=== PATIENT | female | born 1970 | race Two or more races ===

== ENCOUNTER 2023-07-05 02:16 | Emergency (ER) | payer SELFPAY ==
[~2023-07-05] VITALS: Ht 154.9 cm; Wt 79.5 kg
[2023-07-05] MEDS: AmLODIPine BESYLATE 5 MG TABLET PO ONE (02:43)
[2023-07-05 02:49] LABS: BASOPHILS % (AUTO) 0.7 % (0.0-2.0); EOSINOPHILS % (AUTO) 1.6 % (1.0-6.0); HEMATOCRIT 41.7 % (36-46); HEMOGLOBIN 14.2 g/dL (12.0-16.0); MEAN CORPUSCULAR HEMOGLOBIN 31.3 pg (26.0-34.0); MEAN CORPUSCULAR VOLUME 92 fL (80-100); MONOCYTES # (AUTO) 0.7 K/uL (0.1-1.0); MONOCYTES % (AUTO) 7.7 % (2.0-9.0); NEUTROPHILS # (AUTO) 4.8 K/uL (1.8-7.7); PLATELET COUNT (AUTO) 310 K/uL (150-450); RED BLOOD CELL COUNT(AUTO) 4.54 MIL/uL (4.00-5.20); RED CELL DISTRIBUTION WIDTH 12.9 % (11.5-14.5); WHITE BLOOD COUNT (AUTO) 9.8 K/uL (4.5-11.0)
[2023-07-05 02:59] LABS: ANION GAP 10 mmol/L (8-16); CARBON DIOXIDE 28 mmol/L (22-29); CHLORIDE 100 mmol/L (98-107); CREATININE 0.65 mg/dL (0.60-1.30); GLOMERULAR FILTR. RATE CALC > 60 mL/min (>60); GLUCOSE,RANDOM 112 mg/dL (70-110); POTASSIUM 3.5 mmol/L (3.5-5.1); SODIUM SERUM 138 mmol/L (136-145); UREA NITROGEN, BLOOD 14 mg/dL (7-18)
[2023-07-05 03:03] LABS: PROTHROMBIN TIME 10.4 SEC (9.4-11.6)
[2023-07-05 03:15] LABS: TROPONIN I-HIGH SENSITIVITY 4 ng/L (<51)
[2023-07-05 03:19] LABS: B-TYPE NATRIURETIC PEPTIDE 24 pg/mL (0-100)
[2023-07-05 03:24] LABS: ALANINE AMINOTRANSFERASE 32 U/L (12-78); ALBUMIN 3.9 g/dL (3.4-5.0); ALKALINE PHOSPHATASE 53 U/L (46-116); ASPARTATE AMINOTRANSFERASE 28 U/L (15-37); BILIRUBIN,TOTAL 0.5 mg/dL (0.1-1.0); CREATINE KINASE, TOTAL ONLY 137 U/L (26-192); TOTAL PROTEIN, SERUM 8.2 g/dL (6.4-8.2)
[2023-07-05] MEDS ORDERED: SODIUM CHLORIDE 0.9% 1,000 ML ONE (03:33)
[2023-07-05] MEDS ORDERED: ONDANSETRON HCL 4 MG/2 ML VIAL ONE (03:38)
[2023-07-05] MEDS: SODIUM CHLORIDE 0.9% 1,000 ML IV ONE ×2 (03:43→05:34)
[2023-07-05] MEDS: ACETAMINOPHEN 325 MG TABLET PO ONE (03:43)
[2023-07-05] MEDS: HydrALAZINE HCL 20 MG/ML VIAL IVP ONE (03:45)
[2023-07-05 04:06] LABS: APPEARANCE,URINE CLEAR (CLEAR); BILIRUBIN,URINE NEGATIVE (NEGATIVE); COLOR,URINE COLORLESS (YELLOW); GLUCOSE, URINE (UA) NEGATIVE (NEGATIVE); KETONES,URINE NEGATIVE (NEGATIVE); LEUKOCYTE ESTERASE ,URINE NEGATIVE (NEGATIVE); NITRATE,URINE NEGATIVE (NEGATIVE); OCCULT BLOOD,URINE NEGATIVE (NEGATIVE); PH,URINE 7.5 (5.0-8.0); PROTEIN,URINE NEGATIVE (NEGATIVE); SPECIFIC GRAVITIY, URINE 1.009 (1.003-1.030); UROBILINOGEN,URINE <=1.0 mg/dL (<=1.0)
[2023-07-05] MEDS: ONDANSETRON HCL 4 MG/2 ML VIAL IVP ONE (04:42)
[2023-07-05] MEDS ORDERED: AMLO2.5T96 PO (06:13)
[2023-07-05 06:21] LABS: TROPONIN I-HIGH SENSITIVITY 4 ng/L (<51)
[2023-07-05 07:03] VITALS: TEMP 98.7
[2023-07-05 08:47] VITALS: BP 118/77; PULSE 89; RESP 16
== END 2023-07-05 08:50 | disposition home or self-care (01) ==
LOC: EMS 02:19
DX: K52.9 Noninfective gastroenteritis and colitis, unspecified (principal); I10 Essential (primary) hypertension; Z88.0 Allergy status to penicillin
CPT/HCPCS: 99285; 96374; 70450; 71045; 96361; 96375; 80053; 81003; 82550; 83880; 84484; 85025; 85610; 85730; 36415; 93005; J0360; J2405; J7030